=== PATIENT | male | born 1970 | race Caucasian/White ===

== ENCOUNTER 2017-02-04 00:02 | Inpatient (IN) | payer OTHER ==
[~2017-02-04] VITALS: Ht 190.5 cm; Wt 116.8 kg
[2017-02-04 00:52] LABS: HEMATOCRIT 45.4 % (38.0-50.0); MCH 29.6 PG (29.0-34.0); MCV 89.7 FL (86-99); MEAN PLAT.VOLUME 10.2 uM^3 (9.0-12.4); PLATELET COUNT 292 K/uL (156-360); RBC DIS.WIDTH-CV 12.1 % (11.8-14.6); RBC DIS.WIDTH-SD 39.5 % (39-53); RED BLOOD COUNT 5.06 M/uL (4.00-5.50); WHITE BLOOD COUNT 13.7 K/uL (4.1-10.2)
[2017-02-04 01:00] LABS: CHLORIDE 105 mEq/L (99-109); SODIUM 137 mEq/L (136-147)
[2017-02-04 01:02] LABS: GLUCOSE 289 mg/dL (70-99)
[2017-02-04 01:03] LABS: ANION GAP 10 MEQ/L (2-14)
[2017-02-04 01:05] LABS: SERUM ETHYL ALCOHOL 252 mg/dL
[2017-02-04 01:07] LABS: UREA NITROGEN (BUN) 10 mg/dL (9-23)
[2017-02-04 01:16] LABS: GFR ESTIMATE (CALCULATED) > 59 mL/min/
[2017-02-04 04:32] VITALS: BP 116/69
[2017-02-04 07:29] VITALS: BP 131/64
[2017-02-04 07:48] LABS: POINT-OF-CARE METER ID UU14208753
[2017-02-04] MEDS ORDERED: LISINOPRIL10 MG PO (11:17)
[2017-02-04] MEDS ORDERED: GLIPIZIDE XL10 MG PO (11:18)
[2017-02-04] MEDS ORDERED: METFORMIN HCL1000 MG PO (11:18)
[2017-02-04] MEDS ORDERED: ATORVASTATIN CA40 MG PO (11:18)
[2017-02-04 12:42] VITALS: BP 137/79
[2017-02-04 15:12] LABS: AMPHETAMINE NEGATIVE (500 ng/mL); BARBITURATES NEGATIVE (200 ng/mL); BENZODIAZEPINES NEGATIVE (150 ng/mL); COCAINE NEGATIVE (150 ng/mL); INTERNAL CONTROLS VALID? YES; METHADONE NEGATIVE (200 ng/mL); METHAMPHETAMINE NEGATIVE (500 ng/mL); OPIATES (MORPHINE) PRESUMPTIVE POSITIVE (100 ng/mL); OXYCODONE NEGATIVE (100 ng/mL); PHENCYCLIDINE NEGATIVE (25 ng/mL); PROPOXYPHENE NEGATIVE (300 ng/mL); THC CANNABINOIDS NEGATIVE (50 ng/mL); TRICYCLIC ANTIDEPRESSANTS NEGATIVE (300 ng/mL)
[2017-02-04 15:13] LABS: ADD MEDTOX COMMENT Y
[2017-02-04 16:58] LABS: POINT-OF-CARE METER ID UU13113675
[2017-02-04 20:05] VITALS: BP 137/89
[2017-02-04 21:23] LABS: POINT-OF-CARE METER ID UU14117124
[2017-02-04 23:55] VITALS: BP 139/86
[2017-02-05 02:58] VITALS: BP 161/93
[2017-02-05 06:43] LABS: POINT-OF-CARE METER ID UU14149397
[2017-02-05 08:12] VITALS: BP 142/95
[2017-02-05 11:31] LABS: POINT-OF-CARE METER ID UU14149397
[2017-02-05 11:48] VITALS: BP 156/96
[2017-02-05 16:26] LABS: POINT-OF-CARE METER ID UU14117124
[2017-02-05 17:14] VITALS: BP 145/91
[2017-02-05 20:37] VITALS: BP 125/72
[2017-02-05 21:54] LABS: POINT-OF-CARE METER ID UU14117124
[2017-02-05 23:10] VITALS: BP 139/75
[2017-02-06 05:07] VITALS: BP 134/74
[2017-02-06 06:44] LABS: POINT-OF-CARE METER ID UU14117124
[2017-02-06 07:31] VITALS: BP 119/75
[2017-02-06 11:28] LABS: POINT-OF-CARE METER ID UU14117124
[2017-02-06 12:02] VITALS: BP 123/71
[2017-02-06 16:16] VITALS: BP 123/73
[2017-02-06 17:02] LABS: POINT-OF-CARE METER ID UU14188577
[2017-02-06 20:02] VITALS: BP 121/76
[2017-02-06 21:00] LABS: POINT-OF-CARE METER ID UU14208753
[2017-02-06 23:18] VITALS: BP 135/77
[2017-02-07 04:50] VITALS: BP 133/77
[2017-02-07 07:04] LABS: POINT-OF-CARE METER ID UU14117124
[2017-02-07 08:19] VITALS: BP 151/79
[2017-02-07 09:22] LABS: MCH 29.9 PG (29.0-34.0); MCHC 33.2 G/DL (30.0-36.0); MCV 90.3 FL (86-99); MEAN PLAT.VOLUME 10.1 uM^3 (9.0-12.4); PLATELET COUNT 266 K/uL (156-360); RBC DIS.WIDTH-SD 39.6 % (39-53); RED BLOOD COUNT 4.21 M/uL (4.00-5.50); WHITE BLOOD COUNT 10.6 K/uL (4.1-10.2)
[2017-02-07 10:21] LABS: ANION GAP 8 MEQ/L (2-14); CHLORIDE 101 MEQ/L (99-109); GFR ESTIMATE (CALCULATED) > 59 mL/min/; GLUCOSE 149 mg/dL (70-99); POTASSIUM 4.1 MEQ/L (3.7-5.4); SAMPLE HEMOLYSIS CHECK 0; SAMPLE ICTERIC CHECK 0; SAMPLE LIPEMIA CHECK 0; SODIUM 138 MEQ/L (136-147); UREA NITROGEN (BUN) 11 mg/dL (9-23)
[2017-02-07 12:14] LABS: POINT-OF-CARE METER ID UU14188577
[2017-02-07 12:18] VITALS: BP 129/82
[2017-02-07] MEDS ORDERED: ENDOCET 5-3251 EACH PO (13:17)
[2017-02-07 16:00] VITALS: BP 133/80
[2017-02-07 16:41] LABS: POINT-OF-CARE METER ID UU14188577
== END 2017-02-07 20:13 | disposition home or self-care (01) | DRG 488 ==
LOC: TRA 00:02 → EDBD 00:02 → EME 00:02 → 3EAST 01:59 → EDOF 01:59 → ENRESERV 02:00 → 3EAST 04:21
PROVIDERS: Emergency Medicine; Physician Assistant Surgical
DX: S82.002B Unspecified fracture of left patella, initial encounter for open fracture type I or II (principal); J96.01 Acute respiratory failure with hypoxia; S22.20XA Unspecified fracture of sternum, initial encounter for closed fracture; F10.129 Alcohol abuse with intoxication, unspecified; E11.9 Type 2 diabetes mellitus without complications; I10 Essential (primary) hypertension; R09.02 Hypoxemia; S27.329A Contusion of lung, unspecified, initial encounter; Y90.8 Blood alcohol level of 240 mg/100 ml or more; V43.52XA Car driver injured in collision with other type car in traffic accident, initial encounter; S76.122A Laceration of left quadriceps muscle, fascia and tendon, initial encounter; S22.31XA Fracture of one rib, right side, initial encounter for closed fracture; E66.9 Obesity, unspecified; Z68.32 Body mass index [BMI] 32.0-32.9, adult
CPT/HCPCS: 70450; 71010; 71020; 71250; 72125; 73564; 74176; 80048; 82948; 83605; 84999; 85027; 86850; 86900; 86901; 87040; 94760; 94799; 99281; 99285; C1713; G0480; J0131; J0690; J1580; J1815; J2250; J2270; J3010; J7030; J7050; J7120; S0020